=== PATIENT | female | born 1995 | race Caucasian/White ===

== ENCOUNTER 2017-03-10 16:49 | Observation (INO) | payer OTHER ==
[~2017-03-10] VITALS: Ht 162.6 cm; Wt 66.2 kg
[2017-03-10 17:30] VITALS: BP 109/66
[2017-03-10] MEDS ORDERED: IRON65TA11 PO (18:05)
[2017-03-10 20:15] VITALS: BP 98/53
== END 2017-03-10 20:40 | disposition home or self-care (01) ==
LOC: MLD 16:49
PROVIDERS: ADMIT Obstetrics & Gynecology; ATTEND Obstetrics & Gynecology
DX: O36.8190 Decreased fetal movements, unspecified trimester, not applicable or unspecified (principal); Z3A.00 Weeks of gestation of pregnancy not specified
CPT/HCPCS: 76819; G0378; Q0092

== ENCOUNTER 2017-06-18 17:30 | Observation (INO) | payer OTHER ==
[~2017-06-18] VITALS: Ht 167.6 cm; Wt 79.8 kg
[~2017-06-18 17:30] MED LIST: FERR-252 PO
[2017-06-18 17:53] VITALS: BP 107/58
[2017-06-18] MEDS ORDERED: PREN-371 PO (18:09)
[2017-06-19] MEDS ORDERED: PREN1SGL25 PO (21:04)
[2017-06-19] MEDS ORDERED: FERR-252 PO (21:05)
== END 2017-06-18 18:35 | disposition home or self-care (01) ==
LOC: MLD 17:30
PROVIDERS: ADMIT Obstetrics & Gynecology; ATTEND Obstetrics & Gynecology
DX: Z34.93 Encounter for supervision of normal pregnancy, unspecified, third trimester (principal); Z3A.38 38 weeks gestation of pregnancy
CPT/HCPCS: 59025; 81000; G0378

== ENCOUNTER 2017-06-19 18:51 | Observation (INO) | payer OTHER ==
[~2017-06-19] VITALS: Ht 167.6 cm; Wt 79.8 kg
[~2017-06-19 18:51] MED LIST changes: +PREN-371 PO
[2017-06-19] MEDS ORDERED: PREN1SGL25 PO (21:04)
[2017-06-19] MEDS ORDERED: OXYTOCIN 10 UNITS/ML VIAL IM SCH (21:05)
[2017-06-19] MEDS ORDERED: METHYLERGONOVINE 0.2 MG/ML AMP IM PRN (21:05)
[2017-06-19] MEDS ORDERED: NALBUPHINE HYDROCHLORIDE 10 MG/ML VIAL IVP PRN (21:05)
[2017-06-19] MEDS ORDERED: FERR-252 PO (21:05)
[2017-06-19] MEDS ORDERED: PROMETHAZINE 25 MG/ML VIAL IVP PRN (21:05)
[2017-06-19] MEDS ORDERED: CARBOPROST 250 MCG/ML AMP IM PRN (21:05)
[2017-06-19 21:18] LABS: BASOPHILS % (AUTO) 0.6 % (0.0-2.0); EOSINOPHILS # (AUTO) 0.1 K/uL (0-0.4); EOSINOPHILS % (AUTO) 0.9 % (0.0-4.0); HEMATOCRIT 36.8 % (36-48); HEMOGLOBIN 12.4 g/dL (12.0-16.0); LYMPHOCYTES # (AUTO) 1.6 K/uL (2.5-16.5); LYMPHOCYTES % (AUTO) 19.3 % (20.5-51.1); MEAN CORPUSCULAR HEMOGLOBIN 30 pg (27-31); MEAN CORPUSCULAR HGB CONC 34 g/dL (33-37); MEAN CORPUSCULAR VOLUME 88 fL (80-94); MONOCYTES # (AUTO) 0.4 K/uL (0.8-1.0); MONOCYTES % (AUTO) 5.5 % (1.7-9.3); NEUTROPHILS % (AUTO) 73.7 % (42.2-75.2); PLATELET COUNT (AUTO) 220 K/uL (140-450); RED BLOOD CELL COUNT(AUTO) 4.18 MIL/uL (4.20-5.40); RED CELL DISTRIBUTION WIDTH 13.1 % (11.6-13.7); WHITE BLOOD COUNT (AUTO) 8.1 K/uL (4.8-10.8)
[2017-06-19 21:28] LABS: ANION GAP 14.6 (8-16); CREATININE 0.5 mg/dL (0.6-1.3); POTASSIUM 3.6 mmol/L (3.5-5.1)
[2017-06-19 21:30] VITALS: BP 114/60
[2017-06-19 21:31] LABS: PROTHROMBIN TIME 9.1 secs (10.8-13.4)
[2017-06-19] MEDS: LACTATED RINGERS 1,000 ML IV SCH (21:31)
[2017-06-19 21:34] LABS: APPEARANCE,URINE CLOUDY (CLEAR); BILIRUBIN,URINE NEGATIVE (NEGATIVE); BLOOD, URINE NEGATIVE (NEGATIVE); COLOR,URINE YELLOW (YELLOW); LEUKOCYTE ESTERASE ,URINE NEGATIVE (NEGATIVE); NITRITE, URINE NEGATIVE (NEGATIVE); PH,URINE 6.5 (5.0-9.0); UGLUCOSE NEGATIVE (NEGATIVE)
[2017-06-19 21:34] LABS: ALBUMIN 2.5 g/dL (3.4-5.0); TOTAL BILIRUBIN 0.5 mg/dL (0.0-1.0)
[2017-06-19 21:59] LABS: RBC,URINE 0-5 (RARE) /HPF (0-5); URINE AMORPHOUS URATE 4+ /HPF (None Seen)
[2017-06-19] MEDS ORDERED: AMPICILLIN 2,000 MG in NACL 0.9% MINI-BAG PLUS 100 ML IV SCH (22:10)
[2017-06-19] MEDS ORDERED: AMPICILLIN 2,000 MG VIAL ONE (22:21)
[2017-06-20] MEDS ORDERED: MISOPROSTOL 25 MCG TAB ONE (01:41)
[2017-06-20] MEDS ORDERED: AMPICILLIN 1,000 MG VIAL ONE ×4 (02:25→14:00)
[2017-06-20] MEDS ORDERED: ONDANSETRON 4 MG/2 ML VIAL IVP PRN (02:30)
[2017-06-20] MEDS ORDERED: MORPHINE SULFATE 2 MG/ML SYR IVP PRN (02:30)
[2017-06-20] MEDS ORDERED: OXYTOCIN 20 UNITS in LACTATED RINGERS 1,000 ML IV SCH (02:30)
[2017-06-20] MEDS ORDERED: MISOPROSTOL 25 MCG TAB VG SCH (02:30)
[2017-06-20] MEDS ORDERED: NALBUPHINE 10 MG/ML AMP IVP PRN (02:30)
[2017-06-20] MEDS ORDERED: AMPICILLIN 1,000 MG in NACL 0.9% MINI-BAG PLUS 50 ML IV SCH (04:00)
[2017-06-20] MEDS ORDERED: OXYTOCIN 20 UNITS/LR PREMIX 1,000 ML IV ONE (05:42)
[2017-06-20] MEDS: LACTATED RINGERS 1,000 ML IV SCH (05:56)
--- NOTE | 2017-06-20 08:58 | NUR ---
PATIENT HAS BEEN SCREENED AND CATEGORIZED LOW NUTRITION RISK. PATIENT WILL BE SEEN WITHIN 7 DAYS OF ADMISSION. 06/26/2017 DRAGAN GIBSON MBA, RD
[2017-06-20 13:26] LABS: RAPID PLASMA REAGIN NON-REACTIVE (Non Reactiv)
== END 2017-06-20 15:40 | disposition home or self-care (01) ==
LOC: MFCC 18:51 → INTOOBSV 18:51
PROVIDERS: ADMIT Obstetrics & Gynecology; ATTEND Obstetrics & Gynecology
DX: O61.9 Failed induction of labor, unspecified (principal); Z3A.38 38 weeks gestation of pregnancy
CPT/HCPCS: 36415; 76805; 80053; 81001; 85025; 85379; 85610; 85730; 86592; 86703; 86886; 86900; 86901; 87086; 96361; 96365; G0378; J0290; J2590; J7120; Q0092

== ENCOUNTER 2017-06-24 15:32 | Inpatient (IN) | payer OTHER ==
[~2017-06-24] VITALS: Ht 167.6 cm; Wt 79.8 kg
[~2017-06-24 15:32] MED LIST changes: +PREN1SGL25 PO
[2017-06-24] MEDS ORDERED: FERR-252 PO (16:25)
[2017-06-24] MEDS ORDERED: PREN-546 PO (16:25)
[2017-06-24] MEDS ORDERED: OXYTOCIN 20 UNITS in LACTATED RINGERS 1,000 ML IV SCH (18:53)
[2017-06-24] MEDS ORDERED: MISOPROSTOL 25 MCG TAB VG SCH (18:59)
[2017-06-24 19:49] LABS: BASOPHILS % (AUTO) 0.5 % (0.0-2.0); EOSINOPHILS # (AUTO) 0.1 K/uL (0-0.4); EOSINOPHILS % (AUTO) 0.8 % (0.0-4.0); HEMATOCRIT 37.8 % (36-48); HEMOGLOBIN 12.9 g/dL (12.0-16.0); LYMPHOCYTES # (AUTO) 1.6 K/uL (2.5-16.5); MEAN CORPUSCULAR HEMOGLOBIN 30 pg (27-31); MEAN CORPUSCULAR HGB CONC 34 g/dL (33-37); MEAN CORPUSCULAR VOLUME 88 fL (80-94); MONOCYTES # (AUTO) 0.5 K/uL (0.8-1.0); MONOCYTES % (AUTO) 6.6 % (1.7-9.3); NEUTROPHILS # (AUTO) 5.2 K/uL (1.8-7.7); NEUTROPHILS % (AUTO) 70.1 % (42.2-75.2); PLATELET COUNT (AUTO) 231 K/uL (140-450); RED BLOOD CELL COUNT(AUTO) 4.29 MIL/uL (4.20-5.40); RED CELL DISTRIBUTION WIDTH 12.6 % (11.6-13.7); WHITE BLOOD COUNT (AUTO) 7.4 K/uL (4.8-10.8)
[2017-06-24] MEDS ORDERED: MISOPROSTOL 25 MCG TAB ONE (20:14)
[2017-06-24] MEDS: LACTATED RINGERS 1,000 ML IV SCH (20:25)
[2017-06-24] MEDS ORDERED: AMPICILLIN 2,000 MG VIAL ONE (20:40)
[2017-06-24] MEDS ORDERED: INFLUENZA VIRUS VACCINE QUAD 0.5 ML SYR IMVAC SCH (20:47)
[2017-06-24 20:48] VITALS: BP 119/62
[2017-06-24 21:19] LABS: APPEARANCE,URINE SL CLOUDY (CLEAR); BILIRUBIN,URINE NEGATIVE (NEGATIVE); BLOOD, URINE NEGATIVE (NEGATIVE); COLOR,URINE YELLOW (YELLOW); LEUKOCYTE ESTERASE ,URINE NEGATIVE (NEGATIVE); NITRITE, URINE NEGATIVE (NEGATIVE); PH,URINE 6.5 (5.0-9.0); UGLUCOSE NEGATIVE (NEGATIVE)
[2017-06-24 21:24] LABS: RBC,URINE 0-5 (RARE) /HPF (0-5)
[2017-06-24 23:55] LABS: ALBUMIN 2.5 g/dL (3.4-5.0); ANION GAP 11.9 (8-16); CARBON DIOXIDE 23.9 mmol/L (21-32); CREATININE 0.6 mg/dL (0.6-1.3); POTASSIUM 3.8 mmol/L (3.5-5.1); TOTAL BILIRUBIN 0.4 mg/dL (0.0-1.0)
[2017-06-25] MEDS: AMPICILLIN 1,000 MG in NACL 0.9% 50 ML IV SCH ×3 (00:31→09:02)
[2017-06-25] MEDS ORDERED: AMPICILLIN 1,000 MG VIAL ONE ×6 (00:35→20:34)
[2017-06-25] MEDS ORDERED: MISOPROSTOL 25 MCG TAB ONE ×2 (04:17→20:43)
--- NOTE | 2017-06-25 06:35 | NUR ---
PATIENT HAS BEEN SCREENED AND CATEGORIZED LOW NUTRITION RISK. PATIENT WILL BE SEEN WITHIN 7 DAYS OF ADMISSION. 06/01/17 CHEPE SAMSON MS, RDN
[2017-06-25] MEDS ORDERED: MISOPROSTOL 25 MCG TAB VG ONE (07:20)
[2017-06-25] MEDS: LACTATED RINGERS 1,000 ML IV SCH ×2 (08:02→19:02)
[2017-06-25] MEDS: NALBUPHINE 10 MG/ML AMP IVP PRN ×2 (09:17→19:11)
[2017-06-25] MEDS ORDERED: NALBUPHINE HYDROCHLORIDE 10 MG/ML VIAL ONE ×2 (09:20→19:20)
[2017-06-25] MEDS ORDERED: OXYTOCIN 20 UNITS in LACTATED RINGERS 1,000 ML IV SCH ×4 (18:53)
[2017-06-26] MEDS ORDERED: AMPICILLIN 1,000 MG VIAL ONE ×3 (00:02→08:48)
[2017-06-26] MEDS: NALBUPHINE 10 MG/ML AMP IVP PRN (08:02)
[2017-06-26] MEDS ORDERED: NALBUPHINE HYDROCHLORIDE 10 MG/ML VIAL ONE (08:07)
[2017-06-26] MEDS: AMPICILLIN 1,000 MG in NACL 0.9% 50 ML IV SCH (08:50)
[2017-06-26] MEDS ORDERED: ceFAZolin 2,000 MG in NACL 0.9% 100 ML IV ONE (09:55)
[2017-06-26] MEDS: LACTATED RINGERS 1,000 ML IV SCH (13:25)
[2017-06-26] MEDS ORDERED: ONDANSETRON 4 MG/2 ML VIAL ONE (15:50)
[2017-06-26] MEDS ORDERED: MIDAZOLAM 2 MG/2 ML VIAL ONE (16:05)
[2017-06-26] MEDS ORDERED: MORPHINE PRES FREE 10 MG/10 ML AMP IV ONE (16:05)
[2017-06-26] MEDS ORDERED: OXYTOCIN 20 UNITS in LACTATED RINGERS 1,000 ML IV SCH (16:21)
[2017-06-26] MEDS ORDERED: HYDROmorphone PFS 2 MG/ML SYR IVP PRN ×2 (16:25→18:50)
[2017-06-26] MEDS ORDERED: NALOXONE 0.4 MG/ML VIAL IVP PRN ×3 (16:25)
[2017-06-26] MEDS ORDERED: diphenhydrAMINE 50 MG/ML VIAL IVP PRN ×2 (16:25)
[2017-06-26] MEDS ORDERED: ONDANSETRON 4 MG/2 ML VIAL IVP PRN ×2 (16:25)
[2017-06-26] MEDS ORDERED: NALBUPHINE 10 MG/ML AMP IVP PRN (16:25)
[2017-06-26] MEDS ORDERED: MEPERIDINE 25 MG/ML SYR IVP PRN (16:25)
[2017-06-26] MEDS ORDERED: KETOROLAC 30 MG/ML VIAL IM/IVP SCH (18:00)
[2017-06-26] MEDS ORDERED: MEASLES, MUMPS, AND RUBELLA 1 VIAL SQVAC PRN (18:50)
[2017-06-27] MEDS: OXYTOCIN 20 UNITS in LACTATED RINGERS 1,000 ML IV SCH ×2 (01:17→10:36)
[2017-06-27] MEDS ORDERED: OXYTOCIN 20 UNITS/LR PREMIX 1,000 ML IV ONE (01:21)
[2017-06-27 13:48] LABS: BASOPHILS # (AUTO) 0.1 K/uL (0.00-0.22); BASOPHILS % (AUTO) 0.8 % (0.0-2.0); EOSINOPHILS # (AUTO) 0.1 K/uL (0-0.4); EOSINOPHILS % (AUTO) 0.6 % (0.0-4.0); HEMATOCRIT 25.7 % (36-48); LYMPHOCYTES # (AUTO) 1.4 K/uL (2.5-16.5); LYMPHOCYTES % (AUTO) 14.2 % (20.5-51.1); MEAN CORPUSCULAR HEMOGLOBIN 30 pg (27-31); MEAN CORPUSCULAR HGB CONC 35 g/dL (33-37); MEAN CORPUSCULAR VOLUME 87 fL (80-94); MONOCYTES # (AUTO) 0.6 K/uL (0.8-1.0); MONOCYTES % (AUTO) 5.8 % (1.7-9.3); NEUTROPHILS # (AUTO) 7.9 K/uL (1.8-7.7); NEUTROPHILS % (AUTO) 78.6 % (42.2-75.2); PLATELET COUNT (AUTO) 193 K/uL (140-450); RED BLOOD CELL COUNT(AUTO) 2.97 MIL/uL (4.20-5.40); RED CELL DISTRIBUTION WIDTH 12.6 % (11.6-13.7); WHITE BLOOD COUNT (AUTO) 10.1 K/uL (4.8-10.8)
[2017-06-27] MEDS: KETOROLAC 30 MG/ML VIAL IVP PRN (19:58)
[2017-06-27] MEDS ORDERED: IBUPROFEN 600 MG TAB PO PRN (22:00)
[2017-06-28] MEDS: KETOROLAC 30 MG/ML VIAL IVP PRN (06:09)
[2017-06-28] MEDS ORDERED: SODIUM PHOSPHATE 118 ML ENEM RC PRN (08:00)
[2017-06-28] MEDS ORDERED: SIMETHICONE 80 MG TAB.CHEW PO PRN (08:00)
[2017-06-28] MEDS: DOCUSATE SODIUM 100 MG GELCAP PO PRN (08:48)
[2017-06-28] MEDS: BISACODYL 5 MG TABEC PO PRN (08:50)
[2017-06-28] MEDS: oxyCODONE/APAP 5/325 MG 1 TAB TAB PO PRN (15:58)
[2017-06-29] MEDS: oxyCODONE/APAP 5/325 MG 1 TAB TAB PO PRN ×3 (08:19→20:41)
[2017-06-29] MEDS: DOCUSATE SODIUM 100 MG GELCAP PO PRN (20:41)
[2017-06-29] MEDS: BISACODYL 5 MG TABEC PO PRN (20:41)
[2017-06-30] MEDS: oxyCODONE/APAP 5/325 MG 1 TAB TAB PO PRN (11:03)
== END 2017-06-30 15:00 | disposition home or self-care (01) | DRG 540 ==
LOC: MLD 15:32 → OBSVTOIN 17:00 → MLD 19:35 → MFCC 06-26 17:19
PROVIDERS: ADMIT Obstetrics & Gynecology; ATTEND Obstetrics & Gynecology
PROC: 3E0P7VZ Introduction of Hormone into Female Reproductive, Via Natural or Artificial Opening (ICD-10-PCS; 2017-06-25)
PROC: 10D00Z1 Extraction of Products of Conception, Low, Open Approach (ICD-10-PCS; principal; 2017-06-26 15:00)
DX: O62.0 Primary inadequate contractions (principal); O99.824 Streptococcus B carrier state complicating childbirth; O61.0 Failed medical induction of labor; Z3A.39 39 weeks gestation of pregnancy; Z37.0 Single live birth; Z28.21 Immunization not carried out because of patient refusal
CPT/HCPCS: 36415; 59200; 76815; 80053; 81001; 85025; 85379; 85610; 85730; 86886; 86900; 86901; 87086; G0378; J0290; J0690; J1885; J2250; J2270; J2300; J2405; J2590; J7120; Q0092